=== PATIENT | male | born 1965 | race Two or more races ===

== ENCOUNTER 2021-03-07 07:50 | Outpatient (CLI) | payer BC, OTHER | END 2021-03-07 23:59 | disposition home or self-care (01) | LOC: CT 07:50 | PROVIDERS: ATTEND Family Medicine | DX: R91.1 Solitary pulmonary nodule (principal); I77.810 Thoracic aortic ectasia; J84.10 Pulmonary fibrosis, unspecified; K76.0 Fatty (change of) liver, not elsewhere classified; M47.814 Spondylosis without myelopathy or radiculopathy, thoracic region; M19.011 Primary osteoarthritis, right shoulder; M19.012 Primary osteoarthritis, left shoulder | CPT/HCPCS: 71250 ==

== ENCOUNTER 2021-03-21 07:07 | Outpatient (CLI) | payer BC, OTHER | END 2021-03-21 23:59 | disposition home or self-care (01) | LOC: CT 07:07 | PROVIDERS: ATTEND Family Medicine | DX: R91.1 Solitary pulmonary nodule (principal); J84.10 Pulmonary fibrosis, unspecified; I77.810 Thoracic aortic ectasia; K76.0 Fatty (change of) liver, not elsewhere classified; M47.814 Spondylosis without myelopathy or radiculopathy, thoracic region; M19.011 Primary osteoarthritis, right shoulder; M19.012 Primary osteoarthritis, left shoulder | CPT/HCPCS: 71250 ==

== ENCOUNTER → 2022-04-15 | Outpatient (CLI) | payer BC, OTHER ==
[2022-04-15 08:47] LABS: HEMATOCRIT 44.8 % (36.7-47.1); MEAN CORPUSCULAR HEMOGLOBIN 32.9 uug (23.8-33.4); MEAN CORPUSCULAR VOLUME 94.1 fL (73.0-96.2); PLATELET COUNT (AUTO) 173 K/uL (152-348)
[2022-04-15 09:23] LABS: THYROID STIMULATING HORMONE 1.532 mIU/mL (0.358-3.740)
[2022-04-15 09:44] LABS: *BILIRUBIN,URIN NEGATIVE (NEGATIVE); *BLOOD, URINE NEGATIVE (NEGATIVE); *CLARITY,URINE CLEAR (CLEAR); *COLOR,URINE YELLOW (YELLOW); *KETONES,URINE NEGATIVE (NEGATIVE); *UROBILINOGEN,URINE 0.2 E.U./dl (NORMAL); LEUKOCYTE ESTERASE ,URINE NEGATIVE (NEGATIVE); NITRITE, URINE NEGATIVE (NEGATIVE); UGLUCOSE NEGATIVE (NEGATIVE)
[2022-04-15 10:58] LABS: BILIRUBIN,TOTAL 0.6 mg/dL (0.2-1.0); MAGNESIUM 2.1 mg/dL (1.8-2.4); POTASSIUM 4.2 mmol/L (3.5-5.1); TOTAL PROTEIN, SERUM 7.6 g/dL (6.4-8.2); URIC ACID 4.8 mg/dL (3.5-7.2)
[2022-04-16 07:06] LABS: TRIIODOTHYRONINE, FREE 3.2 pg/mL (2.0-4.4)
== END | disposition home or self-care (01) ==
LOC: LAB 07:51
PROVIDERS: ATTEND Family Medicine
DX: Z00.01 Encounter for general adult medical examination with abnormal findings (principal); K76.0 Fatty (change of) liver, not elsewhere classified; N40.1 Benign prostatic hyperplasia with lower urinary tract symptoms; R91.1 Solitary pulmonary nodule
CPT/HCPCS: 36415; 71250; 82306; 83735; 84443; 84481; 84550; 85025